=== PATIENT | male | born 1965 | race Caucasian/White ===

== ENCOUNTER → 2019-05-02 04:40 | Outpatient (CLI) | payer BC, SELFPAY ==
[2019-05-02 05:32] LABS: Basophils % 0.7 % (0.1-2.0); Eosinophils # 0.3 K/mm3 (0.0-0.4); Hematocrit 44.3 % (42.0-52.0); Hemoglobin 14.3 g/dL (14.1-18.0); Lymphocytes # 2.7 K/mm3 (0.7-4.5); Lymphocytes % 46.6 % (10-50); Mean Corpuscular HGB Conc 32.3 g/dL (31.8-35.4); Mean Corpuscular Hemoglobin 30.9 pg (27.0-31.2); Mean Corpuscular Volume 95.6 fl (80-94); Mean Platelet Volume 7.1 fl (7.4-10.4); Monocytes # 0.3 K/mm3 (0.1-1.0); Monocytes % 5.8 % (1.7-9.3); Neutrophils # 2.4 K/mm3 (1.8-7.8); Neutrophils % 41.8 % (37.0-80.0); Platelet Count 283 K/mm3 (142-424); Red Blood Count 4.64 M/mm3 (4.60-6.20); Red Cell Distribution Width 12.4 % (11.5-17.5); White Blood Count 5.8 K/mm3 (4.8-10.8)
[2019-05-02 05:45] LABS: Alanine Aminotransferase 38 U/L (12-78); Albumin Level 3.8 gm/dL (3.4-5.0); Albumin/Globulin Ratio 1.3 (1.1-1.8); Alkaline Phosphatase 62 U/L (46-116); Anion Gap 11.9 mEq/L (5-15); Aspartate Amino Transferase 15 U/L (15-37); Bilirubin,Total 0.4 mg/dL (0.2-1.0); Blood Urea Nitrogen 19 mg/dL (7-18); Calcium 9.1 mg/dL (8.5-10.1); Carbon Dioxide 27 mmol/L (21.0-32.0); Chloride 105 mmol/L (98-107); Chol/HDL Ratio 3.9 (1-3.5); Cholesterol 187 mg/dL (140-200); Creatinine,Serum 0.91 mg/dL (0.70-1.30); Estimated Glomerular Filt Rate 87 ml/min (>60); GFR (African American) 105 ML/MIN (>60); Globulin 2.9 gm/dl (1.3-3.2); Glucose 59 mg/dL (74-106); HDL Cholesterol 48 mg/dL (27-67); LDL Cholesterol 118 mg/dL (0-130); Potassium 3.9 mmoL/L (3.5-5.1); Sodium 140 mmol/L (136-145); Total Protein,Serum 6.7 gm/dL (6.4-8.2); Triglycerides 106 mg/dL (30-200); VLDL Cholesterol 21 mg/dL (0-40)
[2019-05-02 05:48] LABS: Hemoglobin A1C 6.8 % (0.0-7.0)
[2019-05-04 22:51] LABS: Microalbumin, Urine <3.0 ug/mL (Not Estab.)
== END ==
PROVIDERS: PCP Nurse Practitioner Family; Visit Provider Nurse Practitioner Family
DX: R71.0 Precipitous drop in hematocrit (principal); E78.2 Mixed hyperlipidemia; E11.65 Type 2 diabetes mellitus with hyperglycemia
CPT/HCPCS: 36415; 80053; 80061; 82043; 83036; 85025

== ENCOUNTER 2022-08-04 15:43 | Emergency (ER) | payer BC, SELFPAY ==
[2022-08-04 16:39] VITALS: BP 120/72; PULSE 91; RESP 19; TEMP 38.1; O2SAT 98; BMI 26.6
--- NOTE | 2022-08-04 16:43 | EXP.UTC ---
Discharge Plan Disposition Patient Disposition: Home, Self-Care Condition: Good Prescriptions Prescriptions: No Action simvastatin 10 MG tablet 10 mg PO HS Label Comments: TAKE 1 TABLET BY MOUTH ONCE DAILY IN THE EVENING pioglitazone 45 MG tablet 45 mg PO DAILY glimepiride 4 MG tablet 4 mg PO DAILY Label Comments: TAKE 1 TABLET BY MOUTH ONCE DAILY WITH BREAKFAST OR THE FIRST MAIN MEAL OF THE DAY omeprazole 20 MG capsule,delayed release(DR/EC) 20 mg PO DAILY Label Comments: TAKE 1 CAPSULE BY MOUTH ONCE DAILY aspirin 81 MG tablet,chewable 81 mg PO DAILY Label Comments: CHEW AND SWALLOW 1 TABLET BY MOUTH ONCE DAILY fenofibrate nanocrystallized 145 MG tablet 145 mg PO DAILY Label Comments: TAKE 1 TABLET BY MOUTH ONCE DAILY sitagliptin 100 MG tablet 100 mg PO DAILY Label Comments: TAKE 1 TABLET BY MOUTH ONCE DAILY acyclovir 800 MG tablet 800 mg PO 5XDAY Referrals Follow up/Referrals: Fozia Prado APRN [Primary Care Provider] - See instructions Activity Restrictions/Add. Instructions Additional Instructions/Restrictions: *Monitor Temp, Over the counter Motrin or Tylenol as directed/as needed Tylenol every 4 hours and Motrin every 6 hours (as long as your family doctor has told you that you can take it) for fever or pain. and straight to ER if unable to lower temp less than 101.0 after medication given *Warm salt water gargles may help to soothe the throat *Throat Lozenges? *Warm fluids like tea with honey may help to soothe the throat? *Sleep elevated *Humidifier/Vaporizer Follow up IMMEDIATELY for new or worsening symptoms or no Noticeable improvement over the next 48-72 hours. 911 for difficulty breathing or swallowing You were tested for today for Upper Respiratory Panel with COVID19 your test result should be back in the next 24-48 hours, Check your results on the [facility] My Health Portal Make sure to take your Vitamins Vit. C Vit D and Zinc if you can take them Clinical Impressions Clinical Impression: Viral syndrome Stand Alone Forms Stand Alone Forms: Work/School Release Instructions Patient Instructions: DI for Fever (Symptom) -- Adult, DI for Viral Syndrome Discharge ED Provider: Holly Roldan [facility] HPI General Stated complaint: Freezing,aches all over Mode of Arrival: Ambulatory Source of Information: Patient Limitations: No Limitations Time Seen by Provider: 08/04/22 16:44 Description of Symptoms (Recalled from Triage Doc. by RN): pt comes in with c/o body aches, sinus dryness, fever since this am. HEENT Symptoms (Recalled from RN notes): Yes Resp Symptoms (Recalled from RN notes): No Skin Symptoms (Recalled from RN notes): No MS Symptoms (Recalled from RN notes): No Functional Status (Recalled from RN notes): n/a History of Present Illness Provider Complaint: Patient states that he started this morning feeling tired, achy and then started with low grade fever State that he feels like he may have the flu States that his sinuses feel dry and denies nasal congestion State that he was worried that he may have the flu so he came in to get checked out Denies sore throat denies N/V Related Data Home Medications Medication Instructions Recorded Confirmed aspirin 81 mg chewable tablet 81 mg PO DAILY HEART 09/29/19 08/04/22 fenofibrate nanocrystallized 145 145 mg PO DAILY Cholesterol 09/29/19 08/04/22 mg tablet glimepiride 4 mg tablet 4 mg PO DAILY Diabetes 09/29/19 08/04/22 omeprazole 20 mg capsule,delayed 20 mg PO DAILY GERD 09/29/19 08/04/22 release pioglitazone 45 mg tablet 45 mg PO DAILY Diabetes 09/29/19 08/04/22 simvastatin 10 mg tablet 10 mg PO HS Cholesterol 09/29/19 08/04/22 sitagliptin 100 mg tablet 100 mg PO DAILY Diabetes 09/29/19 08/04/22 acyclovir 800 mg tablet 800 mg PO 5XDAY . 08/04/22 Allergies Allergy/AdvReac Type Severity Reaction Status Date / Time No K
[2022-08-04 16:44] LABS: UTC Influenza A Antigen Negative (Negative); UTC Influenza B Antigen Negative (Negative)
[2022-08-04 16:46] LABS: Adenovirus,PCR Not Detected (NotDetected); Bordetella Pertussis Not Detected (NotDetected); Chlamydophila Pneumoniae, PCR Not Detected (NotDetected); Coronavirus 229E Not Detected (NotDetected); Coronavirus NL63 Not Detected (NotDetected); Coronavirus OC43 Not Detected (NotDetected); Coronovirus HKU1,PCR Not Detected (NotDetected); Human Metapneumovirus Not Detected (NotDetected); Influenza A, PCR Not Detected (NotDetected); Influenza AH1, 2009 Not Detected (NotDetected); Influenza AH1, PCR Not Detected (NotDetected); Influenza AH3,PCR Not Detected (NotDetected); Influenza B, PCR Not Detected (NotDetected); Mycoplasma Pneumoniae, PCR Not Detected (NotDetected); Parainfluenza 1, PCR Not Detected (NotDetected); Parainfluenza 2, PCR Not Detected (NotDetected); Parainfluenza 3, PCR Not Detected (NotDetected); Parainfluenza 4, PCR Not Detected (NotDetected); Respiratory Syncytial Virus Not Detected (NotDetected); Rhinovirus/Enterovirus Not Detected (NotDetected)
[2022-08-04 17:05] VITALS: BP 120/72; PULSE 91; RESP 19; TEMP 37.7
[2022-08-04 20:09] LABS: Coronavirus 19, PCR Detected (NotDetected)
== END 2022-08-04 17:08 | disposition home or self-care (01) ==
PROVIDERS: Emergency Provider Nurse Practitioner; PCP Nurse Practitioner Family
DX: U07.1 COVID-19 (principal)
CPT/HCPCS: 87581; 87632; 87798; 87804; 99212; C9803; G0463; U0003; U0005

== ENCOUNTER 2025-09-30 05:39 | Emergency (ER) | payer OTHER, SELFPAY ==
--- OUTSIDE RECORDS SUMMARY | 2025-09-30 05:47 | XMS_ITS | Encounter Summary ---
Author Organization [facility] Address [address] [place] [address] Phone CareEverywhereSuppor Care Team Providers Care Aerospace Physiological Technician Name Role Phone Provider, No Primary Care Provider Unavailabl e Encounter Details Date Type Department Care Team (Late st Contact Info) Description 09/28/2025 Orders Only [facility] [place] [facility] [address] [place] [address] Jeannine Silva, ARRT [address] [place] [address] Acute right-sided low back pain with right-sided sciatica; Right hip pain Social History Tobacco Use Types Packs/Day Years Used Date Smoking Tobacco: Never Smokeless Tobacco: Never Alcohol Use Standard Drinks/Week Comments No 0 (1 standard drink = 0.6 oz pur e alcohol) Intimate Partner Violence Answer Date R ecorded Insults You Not on file 02/02/2021 Threatens You Not on file 02/02/2021 Screams at You Not on file 02/02/2021 Physically Hurt Not on file 02/02/2021 Intimate Partner Violence Score Not on file 02/02/2021 Alcohol Use Answer Date Recorded Alcohol Use Status No 07/19/2021 Depression Answer Date Recorded PHQ Total Score 0 05/01/2024 Stress Answer Date Recorded Stress in your Life Not on file 08/25/2024 Dealing with Stress 3 08/25/2024 Sex and Gender Information Value Date Recorded Sex Assigned at Not on file Legal Sex Male 10:31 AM CDT Gender Identity Not on file Sexual Orientation Not on file documented as of this encounter Plan of Treatment Upcoming Encounters Date Type Department Care Team (Late st Contact Info) Description 09/30/2025 11:30 AM EST [facility] [address] [place] [address] Hector Ohara, PT [address] [place] [address] 10/12/2025 9:00 AM EST Occ [facility] [place] [facility] [address] [place] [address] Leila Riddle, PA [address] [place] [address] documented as of this encounter Procedures Procedure Name Priority Date/Time Associated Diagnosis Comments XR SPINE, LUMBOSACRAL, MINIMUM OF 4 VIEWS CPT 57644 Routine 09/28/2025 12:37 PM EST Acute right-sided low back pain with right-sided sciatica XR HIP, UNILATERAL WITH PELVIS WHEN PERFORMED, 2-3 VIEWS - RIGHT CPT 69502 Routine 09/28/2025 12:36 PM EST Right hip pain documented in this encounter Results * XR Spine, lumbosacral, minimum of 4 views CPT 88480 (09/28/2025 12:37 PM EST) Anatomical Region Laterality Modality Spine, L-spine Radiographic Natasha ging Impressions 09/28/2025 12:37 PM EST IMPRESSION: 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 /Central Ordered By: BOB Staples 09/28/2025 12:37 PM EST Examination AP and Lateral views were obtained of the Lumbar spine Comparisons None provided. 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 Remaining vertebral body alignment is within normal limits. No acute fracture is evident. Mild to moderate degenerative disease is evident. Procedure Note EXPERITY TELERADIOLOGY PROVIDER - 09/28/2025 Examination AP and Lateral views were obtained of the Lumbar spine Comparisons None provided. 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 No acute fracture is evident. Mild to moderate degenerative disease is evident. 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 US/Central Ordered By: BOB CARLISLE Bob Carlisle MD IMG XR PROCEDURES Final R esult * XR Hip, unilateral with pelvis when performed, 2-3 views - right CPT [id number] (09/28/2025 12:36 PM EST) Anatomical Region Laterality Modality Lower Extremities, Hip Right Radiograp hic Imaging Impressions 09/28/2025 12:36 PM EST IMPRESSION: No Fracture or other acute finding identified. /Central Ordered By: BOB CARLISLE Narrative 09/28/2025 12:36 PM EST Examination 2 views of the right hip Comparison None provided. Findings There is no significant soft tissue swelling appreciated. There is no evidence for acute fracture. Mild OA is noted. Procedure Note EXPERITY TELERADIOLOGY PROVIDER - 09/28/2025 Examination 2 views of the right hip Comparison None provided. Findings There is no significant soft tissue swelling appreciated. There is no evidence for acute fracture. Mild OA is noted. IMPRESSION: IMPRESSION: No Fracture or other acute finding identified. US/Central Ordered By: BOB CARLISLE us Bob Carlisle MD IMG XR PROCEDURES Final R esult documented in this encounter Visit Diagnoses Diagnosis Acute right-sided low back pain with right-sided sciatica Right hip pain Pain in joint, pelvic region and thigh documented in this encounter Care Teams Aerospace Physiological Technician Relationship Specialty Start Date End Date Provider, LILIAN Singh [id number] PCP - General Chest Painting Leader 08/19/21 documented as of this encounter
--- OUTSIDE RECORDS SUMMARY | 2025-09-30 05:47 | XMS_ITS | Clinical Summary ---
Author Organization [facility] Address [address] [place] [address] Care Team Providers Care Monument Mason Name Role Phone Pcp, No Primary Care Provider Unavailabl e Allergies No known active allergies Medications metFORMIN (Glucophage) 1000 MG tablet 06/18/2021 Active glimepiride (Amaryl) 4 MG tablet 06/18/2021 Active simvastatin (Zocor) 10 MG tablet 06/18/2021 Active Januvia 100 MG tablet 06/06/2021 Active pioglitazone (Actos) 45 MG tablet 06/18/2021 Active SM Aspirin Adult Low Strength 81 MG EC tablet 01/07/2021 Active omeprazole (PriLOSEC) [address] capsule 06/18/2021 Active fenofibrate (Tricor) 145 MG tablet 06/18/2021 Active Active Problems Problem Noted Date Diagnosed Date Rupture of right proximal biceps tendon 09/29/20 21 Pain in joint, hand 03/31/2010 Overview (08/25/2021): Foreign body in cornea 03/11/2010 Overview (08/25/2021): Sprain and strain of carpometacarpal (joint) of hand 11/24/2009 Overview (08/25/2021): Closed fracture of four ribs 03/17/2008 Overview (08/25/2021): Health examination of defined subpopulation 12/20 Overview (08/25/2021): Other examination of ears and hearing 12/30/2007 Overview (08/25/2021): Social History Tobacco Use Types Packs/Day Years Used Date Smoking Tobacco: Never Smokeless Tobacco: Never PHQ-2 Answer Date Recorded Patient Health Questionnaire-2 Score 0 09/01/2021 Sex and Gender Information Value Date Recorded Sex Assigned at Not on file Legal Sex Male 8:55 PM EDT Gender Identity Not on file Sexual Orientation Not on file Last Filed Vital Signs Vital Sign Reading Time Taken Comments Blood Pressure 129/78 12/08/2021 9:39 AM EST Pulse 71 12/08/2021 9:39 AM EST Temperature - - Respiratory Rate 18 12/08/2021 9:39 AM EST Oxygen Saturation 98% 12/08/2021 9:39 AM EST Inhaled Oxygen Concentration - - Weight 82.1 kg (181 lb) 12/08/2021 9:39 AM EST Height 167.6 cm (5' 6 ) 12/08/2021 9:39 AM EST Body Mass Index 29.21 12/08/2021 9:39 AM EST Plan of Treatment Health Maintenance Due Date Last Done Comments [facility]-Depression Screening 1965 [facility]-/Child/Adol SDOH Screenings 1965 [facility]- SDOH Screenings 12/22/1983 [facility]-Adult SDOH Screenings 12/22/1983 [facility]-Hepatitis B Vaccines (3 of 3 - 19+ 3-dose series) 07/26/2010 03/14/2010, 01/24/2010 CT Colonography 2010 Colonoscopy 2010 FIT-DNA 2010 FIT 2010 FOBT 2010 Sigmoidoscopy 2010 [facility]-Colorectal Cancer Screening 2010 [facility]-Pneumococcal Vaccine: 50+ Years (1 of 1 - PCV) 12/22/2015 [facility]-DTaP,Tdap,and Td Vaccines (2 - Td or Tdap) 03/14/2020 03/14/2010, 03/07/2002 [id number] Vaccine ( season) 2025 10/19/2021, 01/13/2021, 12/16/2020 [facility]-Influenza Vaccine (#1) 06/22/202507/26, 07/22/2020, 09/25/2019, Additional history exists [facility]-Hepatitis A Vaccines Aged Out 03/14/2010 No longer eligible based on patient's age to complete this topic [facility]-Zoster Vaccines Completed 07/08/2021, 0 HPV Vaccines Aged Out No longer eligi ble based on patient's age to complete this topic [facility]-HIB Vaccines Aged Out No longer e ligible based on patient's age to complete this topic [facility]-IPV Vaccines Aged Out No longer e ligible based on patient's age to complete this topic [facility]-Rotavirus Vaccines Aged Out No lo nger eligible based on patient's age to complete this topic Insurance [employer] [facility] Care Teams Monument Mason Relationship Specialty Start Date End Date Pcp, [place] [address] PCP - General 08/25/21
--- OUTSIDE RECORDS SUMMARY | 2025-09-30 05:47 | XMS_ITS | Clinical Summary ---
Author Organization [facility] Address [address] [place] [id number] Phone [email or web address] Care Team Providers Care Linoleum Installer Name Role Phone Provider, No Primary Care Provider Unavailabl e Allergies No known active allergies Medications JANUVIA 100 MG tablet 09/27/20 18 Active metFORMIN (GLUCOPHAGE) 1000 MG tablet 08/19/20 18 Active simvastatin (ZOCOR) 10 MG tablet 08/19/20 18 Active glimepiride (AMARYL) 4 MG tablet 08/19/20 18 Active SM ASPIRIN ADULT LOW STRENGTH 81 MG EC tablet 08/19/20 18 Active Trulicity 0.75 MG/0.5ML solution pen-injector Not taking yet 07/18/20 21 Active fenofibrate (TRICOR) 145 MG tablet Take 145 mg by mouth 1 (one) time each day. 06/18/20 21 Active lisinopril (ZESTRIL) 5 MG tablet Take 5 mg by mouth 1 (one) time each day. 06/18/20 21 Active pioglitazone (ACTOS) 45 MG tablet Take 45 mg by mouth 1 (one) time each day. 06/18/20 21 Active simvastatin (ZOCOR) 40 MG tablet TAKE 1 TABLET BY MOUTH ONCE DAILY (DOSE CHANGE) 12/09/19 22 Active omeprazole (PriLOSEC) [address] capsule 12/12/19 22 Active Mounjaro 10 mg/0.5mL SC Auto-injector INJECT CONTENTS OF 1 SYRINGE SUBCUTANEOUSLY ONCE A WEEK Active Empagliflozin 25 MG tablet Take 25 mg by mouth once daily as needed. 04/20/20 25 Active meloxicam (Mobic) 7.5 MG tabletIndication s:Greater trochanteric pain syndrome of right lower extremity,Acute right-sided low back pain with right-sided sciatica Take 1 tablet (7.5 mg total) by mouth 1 (one) time each day. 30 tablet 09/28/20 25 026 Active Hospital, Clinic, or Other Facility Administered Medication Ordered Dose Route Frequency Start Date End Date Status ketorolac (TORADOL) injection 60 mgIndications:Acute right-sided low back pain with right-sided sciatica 60 mg IM Once 09/29/2025 09/29/2025 Discontinued ketorolac (TORADOL) injection 60 mgIndications:Acute right-sided low back pain with right-sided sciatica,Greater trochanteric pain syndrome of right lower extremity 60 mg IM Once 09/29/2025 09/29/2025 Ended Active Problems Problem Noted Date Diagnosed Date Pain in joint, hand 03/31/2010 Overview (03/20/2018): Foreign body in cornea 03/11/2010 Overview (03/20/2018): Sprain and strain of carpometacarpal (joint) of hand 11/24/2009 Overview (03/20/2018): Closed fracture of four ribs 03/17/2008 Overview (03/20/2018): Other examination of ears and hearing 12/30/2007 Overview (03/20/2018): Health examination of defined subpopulation 12/20 Overview (03/20/2018): Encounters Date Type Department Care Team Description 09/28/2025 Orders Only [facility] [place] [facility] [address] [place] [address] Jeannine Silva ARRT Acute right-sided low back pain with right-sided sciatica; Right hip pain from Last 3 Months Immunizations Immunization Administration Dates Next Due Covid-19 (Moderna Letcher, 12yrs+) (CVX-207) 2020,12/16/2020 Tdap (ADACEL BOOSTRIX) (CVX-115) 03/14/2010 Social History Tobacco Use Types Packs/Day Years Used Date Smoking Tobacco: Never Smokeless Tobacco: Never Tobacco Cessation:Counseling Given: Not Answered Alcohol Use Standard Drinks/Week Comments No 0 [...] Sign Reading Time Taken Comments Blood Pressure 125/69 09/29/2025 9:13 AM EST Pulse 69 09/29/2025 9:13 AM EST Temperature 36.4 C (97.5 F) 05/26/2024 11:58 AM EDT Respiratory Rate 16 09/29/2025 9:13 AM EST Oxygen Saturation 99% 09/29/2025 9:13 AM EST Inhaled Oxygen Concentration - - Weight 71.5 kg (157 lb 11.2 oz) 025 11:32 AM EST Height 167.6 cm (5' 6 ) 09/28/2025 11:3 2 AM EST Body Mass Index 25.45 09/28/2025 11:32 AM EST Plan of Treatment Upcoming Encounters Date Type Department Care Team (Late st Contact Info) Description 09/30/2025 11:30 AM EST Occ Treatment [facility] [address] [place] [address] Hector Ohara, PT [address] [address] 10/12/2025 9:00 AM EST Occ Office Visit [facility] [place] [facility] [address] [place] [address] Leila Riddle PA [address] [place] [address] Health Maintenance Due Date Last Done Comments CT Colonography 1965 Colonoscopy 1965 Colorectal Cancer Screening Combo 1965 DNA Cologuard 1965 Dental Cleaning/Exam 1965 FIT or FOBT Test 1965 HIV Screening 1965 Hepatitis C Screening 1965 Sigmoidoscopy 1965 Annual Preventive Exam 12/22/1983 Hep B Infection Screening - Triple Screen 12/22/1983 Hepatitis B Immunization (3 of 3 - 19+ 3-dose series) 07/26/2010 03/14/2010, 01/24/2010 Pneumococcal: 50+ Years (1 of 1 - PCV) 12/22/2015 Tetanus Diphtheria and Pertussis Immunization (2 - Td or Tdap) 03/14/2020 03/14/2010, 03/07/2002 Covid-19 Immunization (4 - season) 2025 10/19/2021, 01/13/2021, 12/16/2020 Influenza Immunization (#1) 2025 11/0 11/2021, 07/26/2021, 07/22/2020, Additional history exists Hepatitis A Immunization Aged Out 03/14/2010 No longer eligible based on patient's age to complete this topic Zoster Immunization Completed 07/08/2021, Diabetic Kidney Health Eval (eGFR & Alb/CR ratio urine) Discontinued 10/08/2024, 12/19/2022 HIB Immunization Aged Out No longer e ligible based on patient's age to complete this topic HPV Immunization Aged Out No longer e ligible based on patient's age to complete this topic Polio Immunization Aged Out No longer eligible based on patient's age to complete this topic Procedures Procedure Name Priority Date/Time Associated Diagnosis Comments XR SPINE, LUMBOSACRAL, MINIMUM OF 4 VIEWS CPT 58990 Routine 09/28/2025 12:37 PM EST Acute right-sided low back pain with right-sided sciatica XR HIP, UNILATERAL WITH PELVIS WHEN PERFORMED, 2-3 VIEWS - RIGHT CPT 98028 Routine 09/28/2025 12:36 PM EST Right hip pain from Last 3 Months Results * XR Spine, lumbosacral, minimum of 4 views CPT 37501 (09/28/2025 12:37 PM EST) Anatomical Region Laterality Modality Spine, L-spine Radiographic Natasha ging Impressions 09/28/2025 12:37 PM EST IMPRESSION: 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 /Central Ordered By: BOB CARLISLE Narrative 09/28/2025 12:37 PM EST Examination AP and [...] I/II anterolithesis. US/Central Ordered By: BOB CARLISLE us Bob Carlisle MD IMG XR PROCEDURES Final R esult * XR Hip, unilateral with pelvis when performed, 2-3 views - right CPT 69895 (09/28/2025 12:36 PM EST) Anatomical Region Laterality [...] MD IMG XR PROCEDURES Final R esult from Last 3 Months [id number] [place] [address] Care Teams Linoleum Installer Relationship Specialty Start Date End Date Provider, Iris WALTONWLILIAN Chaparro [id number] PCP - General Studio Operations Manager 08/19/21
--- OUTSIDE RECORDS SUMMARY | 2025-09-30 05:47 | XMS_ITS | Clinical Summary ---
[facility] Address [address] [place] [address] Care Team Providers Care Thread Weaver Name Role Phone Provider, No Known Primary Care Provider Unavail able Allergies No known active allergies Medications aspirin 81 MG EC tablet Take 1 tablet by mouth Daily. Active glucose monitor monitoring kit 1 each Daily. 1 each 2 Active glucose blood test strip Use one daily; ICD-10 E11.65 100 each 3 2 Active Lancets misc 1 each Daily. 100 each 3 2 Active fenofibrate (TRICOR) 145 MG tablet Take 1 tablet by mouth Daily. 90 tablet 3 4 Active lisinopril (PRINIVIL,ZESTR IL) 5 MG tablet Take 1 tablet by mouth Daily. 90 tablet 3 4 Active metFORMIN (GLUCOPHAGE) 1000 MG tablet Take 1 tablet by mouth 2 (Two) Times a Day With Meals. 180 tablet 3 4 Active simvastatin (ZOCOR) 40 MG tablet Take 1 tablet by mouth Daily. 90 tablet 3 4 Active omeprazole (priLOSEC) 20 MG capsule Take 1 capsule by mouth Daily. 90 capsule 3 4 Active Tirzepatide (Mounjaro) 10 MG/0.5ML solution auto-injector Inject 0.5 mL under the skin into the appropriate area as directed 1 (One) Time Per Week. 6 mL 1 5 Active empagliflozin (Jardiance) 25 MG tablet tablet Take 1 tablet by mouth Daily. 90 tablet 3 5 Active Active Problems Problem Noted Date Diagnosed Date Type 2 diabetes mellitus with hyperglycemia 02/20 Assessment & Plan (04/08/2025 4:09 PM EDT): Diabetes is worsening. We discussed treatment options. Try adding SGLT-2 inhibitor. Stop glimepiride. Diabetes will be reassessed in 6 months. Assessment & Plan (10/08/2024 11:25 AM EST): Diabetes is improving with treatment. Increase trulicity. Watch for hypoglycemia - may need to decrease glimepiride. Diabetes will be reassessed in 6 months. Assessment & Plan (07/03/2023 3:52 PM EDT): Diabetes is worsening. A1c higher after decreasing glimepiride due to hypoglycemia. Increase trulicity. Watch for more hypoglycemia. If this happens, stop glimepiride. Diabetes will be reassessed in 3 months. Assessment & Plan (12/19/2022 4:03 PM EST): Diabetes is improving with treatment. Continue current treatment regimen. But watch for hypoglycemia. Diabetes will be reassessed in 3 months. He was fasting in the late afternoon in hopes of getting labs done. Glucose was 41 upon arrival to the office. After treatment with juice, glucose was 56. He was given more juice after this. His hypglycemia symptoms had improved. If he has more hypoglycemia, cut glimepiride in 1/2. Assessment & Plan (03/13/2022 9:12 AM EDT): Diabetes is improving with treatment. A1c above goal at 7.6%. We discussed treatment options today. Trial of GLP-1 RA. Stop januvia and pioglitazone. Watch for hypoglycemia - may need to decrease glimepiride. Diabetes will be reassessed in 3 months. Refer for DM education. 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 Assessment & Plan (10/08/2024 11:24 AM EST): Continue ophthalmology follow up. Assessment & Plan (07/03/2023 3:41 PM EDT): Continue ophthalmology follow up. Assessment & Plan (12/19/2022 3:56 PM EST): Continue ophthalmology follow up. Assessment & Plan (03/13/2022 9:10 AM EDT): Continue ophthalmology follow up. Benign hypertension 03/13/2022 Assessment & Plan (04/08/2025 4:09 PM EDT): Hypertension is stable and controlled. Continue current treatment regimen. Blood pressure will be reassessed in 6 months. Assessment & Plan (10/08/2024 11:25 AM EST): Hypertension is stable and controlled Continue current treatment regimen. Blood pressure will be reassessed in 6 months. Assessment & Plan (07/03/2023 3:40 PM EDT): Hypertension is improving with treatment. Continue current treatment regimen. Blood pressure will be reassessed at the next regular appointment. Assessment & Plan (12/19/2022 3:55 PM EST): Hypertension is unchanged. Continue current treatment regimen. Blood pressure will be reassessed at the next regular appointment. Assessment & Plan (03/13/2022 9:11 AM EDT): BP okay. Continue KARINE-I. Mixed hyperlipidemia 03/13/2022 Assessment & Plan (04/08/2025 4:10 PM EDT): Continue statin and fenofibrate. Plan to check lipids next visit. Assessment & Plan (10/08/2024 11:25 AM EST): Continue statin. Check lipids. Assessment & Plan (07/03/2023 3:40 PM EDT): Continue statin. Assessment & Plan (12/19/2022 3:56 PM EST): Continue statin and fenofibrate. Assessment & Plan (03/13/2022 9:20 AM EDT): Continue statin. Family History Medical History Relation Name Comments No Known Problems Mother Relation Name Status Comments Father Mother Alive Social History Tobacco Use Types Packs/Day Years Used Date Smoking Tobacco: Never Smokeless Tobacco: Never Alcohol Use Standard Drinks/Week Comments Never 0 (1 standard drink = 0.6 oz pur e alcohol) Sex and Gender Information Value Date Recorded Sex Assigned at Not on file Legal Sex Male 11:13 AM EDT Gender Identity Not on file Sexual Orientation Not on file Last Filed Vital Signs Vital Sign Reading Time Taken Comments Blood Pressure 110/68 04/08/2025 3:32 PM EDT Pulse 78 04/08/2025 3:32 PM EDT Temperature - - Respiratory Rate - - Oxygen Saturation 99% 04/08/2025 3:32 PM EDT Inhaled Oxygen Concentration - - Weight 81.6 kg (180 lb) 04/08/2025 3:32 PM EDT Height 165.1 cm (5' 5 ) 04/08/2025 3:32 PM EDT Body Mass Index 29.95 04/08/2025 3:32 PM EDT Plan of Treatment Health Maintenance Due Date Last Done Comments DIABETIC FOOT EXAM 12/22/1975 Pneumococcal Vaccine 50+ (1 of 2 - PCV) 1984 Hepatitis B (3 of 3 - 19+ 3- dose series) 07/26/2010 03/14/2010, 01/24/2010 COLOGUARD 2010 COLON CANCER SCREENING 5 YEA R SIGMOIDOSCOPY 2010 COLONOSCOPY 2010 COLORECTAL CANCER SCREENING 2010 CT COLONOGRAPHY 2010 FECAL OCCULT BLOOD TEST 2010 FIT Testing (1 year) 2010 TDAP/TD VACCINES (2 - Td or Tdap) 03/14/2020 010, 03/07/2002 ANNUAL PHYSICAL 03/13/2022 HEPATITIS C SCREENING 03/13/2022 INFLUENZA VACCINE 05/22/2025 08/07/2024, , 07/26/2021, Additional history exists HEMOGLOBIN A1C 10/08/2025 04/08/2025, 09/21, 07/03/2023, Additional history exists LIPID PANEL 10/08/2025 10/08/2024, 12/19/2022 DIABETIC EYE EXAM 12/02/2025 12/02/2024, , 10/26/2022, Additional history exists URINE MICROALBUMIN-CREATININ E RATIO (uACR) 04/09/2026 04/09/2025 ZOSTER VACCINE Completed 07/08/2021, 08/14/2020 Procedures Procedure Name Priority Date/Time Associated Diagnosis Comments POCT GLYCOSYLATED HEMOGLOBIN (HGB A1C) Routine 04/08/2025 3:45 PM EDT Type 2 diabetes mellitus with hyperglycemia, unspecified whether group home insulin use LIPID PANEL Routine 10/08/2024 11:30 AM EST Type 2 diabetes mellitus with hyperglycemia, unspecified whether group home insulin use from Last 3 Months or Most Recently Relevant to Health Maintenance Results * (ABNORMAL) POC Glycosylated Hemoglobin (Hb A1C) (04/08/2025 3:45 PM EDT) Pathologist [facility] Hemoglobin A1C 8.1(A) 4.5 - 5.7 % [facility] Lot Number [id number] [facility] Expiration Date 12/17/26 [facility] Blood 04/08/2025 3:45 PM EDT Cedric Dowling MD POINT OF CARE TEST ORDERA BLES Final Result [facility]
[address] [place] [address], * Lipid Panel (10/08/2024 11:30 AM EST) Total Cholesterol 139 0 - 200 mg/dL 10/09/2024 12:06 AM EST [facility] Triglycerides 69 0 - 150 mg/dL 10/09/2024 12:06 AM EST [facility] HDL Cholesterol 41 40 - 60 mg/dL 10/09/2024 12:06 AM EST [facility] LDL Cholesterol 84 0 - 100 mg/dL 10/09/2024 12:06 AM EST [facility] VLDL Cholesterol 14 5 - 40 mg/dL 10/09/2024 12:06 AM EST [facility] LDL/HDL Ratio 2.05 10/09/2024 12:06 AM EST [facility] Blood Structure of left upper limb / Unknown Venipuncture / Unknown 10/08/2024 11:30 AM EST 10/08/2024 11:31 AM EST Narrative [facility] - 10/09/2024 12:06 AM EST Cholesterol Reference Ranges (U.S. Department of Health and Human Services ATP III Classifications) Desirable <200 mg/dL Borderline High 200-239 mg/dL High Risk >240 mg/dL Triglyceride Reference Ranges (U.S. Department of Health and Human Services ATP III Classifications) Normal <150 mg/dL Borderline High 150-199 mg/dL High 200-499 mg/dL Very High >500 mg/dL HDL Reference Ranges (U.S. Department of Health and Human Services ATP III Classifications) Low <40 mg/dl (major risk factor for CHD) High >60 mg/dl ('negative' risk factor for CHD) LDL Reference Ranges (U.S. Department of Health and Human Services ATP III Classifications) Optimal <100 mg/dL Near Optimal 100-129 mg/dL Borderline High 130-159 mg/dL High 160-189 mg/dL Very High >189 mg/dL Cedric Dowling MD LAB BLOOD ORDERABLES Deb rodney Result [facility]
[address] [place] [address], from Last 3 Months or Most Recently Relevant to Health Maintenance Insurance [facility] PPO Member Subscriber Plan / Payer (Ef fective 2020-Present) Name:Dio Gunn Relation to Subscriber:Self Name:Dio Gunn Payer ID:[id number] (NAIC) Type:Not on file Address: [facility] [id number] [place] [id number] Care Teams Thread Weaver Relationship Specialty Start Date End Date Provider, [place] [address] PCP - General 03/13/22
[2025-09-30 05:48] VITALS: BP 143/94; PULSE 79; RESP 79; TEMP 36.7; O2SAT 98; BMI 25.3
[2025-09-30 05:54] VITALS: BP 143/94; PULSE 79; RESP 16; TEMP 36.7; O2SAT 98
[2025-09-30] MEDS: ACETAMINOPHEN 500MG TAB 1000 MG PO (06:13)
--- NOTE | 2025-09-30 06:13 | HMH.EDGENADL ---
Discharge Plan Disposition Patient Disposition: Home, Self-Care Condition: Good Prescriptions Prescriptions: New prednisone 10 mg tablet 10 mg PO DIRECTED Qty: 30 0RF Rx Instructions: Take 40 mg (4 pills) for 3 days, then 30mg (3 pills) for 3 days, then 20mg (2 pills) for 3 days, then 10mg (1 pill) for 3 days. methocarbamol 500 mg tablet 500 mg PO Q6H PRN (Reason: muscle spasm) Qty: 30 0RF lidocaine 5 % adhesive patch,medicated See Rx Instructions .ROUTE .COMPLEX Qty: 15 0RF Rx Instructions: Apply to most painful area and leave on for 12 hours. Remove and leave off for 12 hours before using a new patch. No Action simvastatin 10 MG tablet 10 mg PO HS Patient Comments: TAKE 1 TABLET BY MOUTH ONCE DAILY IN THE EVENING pioglitazone 45 MG tablet 45 mg PO DAILY glimepiride 4 MG tablet 4 mg PO DAILY Patient Comments: TAKE 1 TABLET BY MOUTH ONCE DAILY WITH BREAKFAST OR THE FIRST MAIN MEAL OF THE DAY omeprazole 20 MG capsule,delayed release(DR/EC) 20 mg PO DAILY Patient Comments: TAKE 1 CAPSULE BY MOUTH ONCE DAILY aspirin 81 MG tablet,chewable 81 mg PO DAILY Patient Comments: CHEW AND SWALLOW 1 TABLET BY MOUTH ONCE DAILY fenofibrate nanocrystallized 145 MG tablet 145 mg PO DAILY Patient Comments: TAKE 1 TABLET BY MOUTH ONCE DAILY sitagliptin phosphate 100 MG tablet 100 mg PO DAILY Patient Comments: TAKE 1 TABLET BY MOUTH ONCE DAILY acyclovir 800 MG tablet 800 mg PO 5XDAY Referrals Follow up/Referrals: Fozia Prado APRN [Primary Care Provider, Medical] - See instructions Activity Restrictions/Add. Instructions Additional Instructions/Restrictions: You were evaluated in the ER and are believed to be appropriate for discharge at this time. Take your prescribed medications as directed. Take Tylenol at home if needed for pain, do not exceed the recommended dose on the bottle. Take ibuprofen OR meloxicam, not both. Drink water and eat a small snack each time you take these medications to avoid side effects. Take the muscle relaxer (methocarbamol) if needed as directed. Do not drive or operate machinery after taking this medication until you know how it affects you as it may make you sleepy. Use the prescribed lidocaine patches as directed, 12 hours on, 12 hours off. As discussed, if you decide to start the steroid monitor your sugar closely and take it as directed. Follow-up with your specialist as scheduled. Continue with physical therapy as scheduled. Also follow-up with your primary care doctor for reevaluation. Return to the ER with any new, worsening, or otherwise concerning symptoms as discussed. Clinical Impressions Clinical Impression: Leg pain, right Print Language Print Language: Lao Discharge ED Provider: Keith Keller Adult HPI General Chief complaint: PAIN Stated complaint: R hip, thigh pain Time Seen by Provider: 09/30/25 05:51 Mode of Arrival: Ambulatory Source of Information: Patient and Spouse Description of Symptoms (Recalled from ER Triage Doc. by RN): PT presents to the ED for evaluation of R hip pain. PT stated on sunday09/25/2025 he was at work and his hip/lower back/down thigh he just started experiencing bad pain. He went to PCP and has xrays and hasnt gotten the results, PCP has referred him to a specialist. History of Present Illness HPI narrative: 59-year-old male presents to the ER complaining of right hip pain. 5 days ago he started experiencing pain radiating from the right low back into the right hip and down the back of the right leg. He states he saw the doctor at [facility] who took x-rays and instructed him to follow-up with a specialist with orthopedics. That has not yet happened. Patient states he is supposed to start physical therapy today and has been taking the meloxicam that was prescribed after receiving a Toradol shot but states it does not seem to be controlling his pain. He last took Tylenol 9 hours ago. He has no numbness, tingling, or weakness. He states he has noticed pain with walking. He has no bowel or bladder incontinence, no difficulty urinating or passing stool, denies saddle anesthesia. This has been a problem for the patient in the past that required physical therapy. He states uncontrolled with the medications he had at home tonight so he came to the ER for further evaluation. He denies fevers, chills, chest pain, difficulty breathing, dysuria, hematuria, or other associated symptoms. He reports he is a type II diabetic not on insulin. Related Data Home Medications ?Medication ?Instructions ?Recorded ?Confirmed aspirin 81 mg chewable tablet 81 mg PO DAILY HEART 09/29/19 08/04/22 fenofibrate nanocrystallized 145 145 mg PO DAILY Cholesterol 09/29/19 08/04/22 mg tablet glimepiride 4 mg tablet 4 mg PO DAILY Diabetes 09/29/19 08/04/22 omeprazole 20 mg capsule,delayed 20 mg PO DAILY GERD 09/29/19 08/04/22 release pioglitazone 45 mg tablet 45 mg PO DAILY Diabetes 09/29/19 08/04/22 simvastatin 10 mg tablet 10 mg PO HS Cholesterol 09/29/19 08/04/22 sitagliptin phosphate 100 mg tablet 100 mg PO DAILY Diabetes 09/29/19 08/04/22 acyclovir 800 mg tablet 800 mg PO 5XDAY . 08/04/22 Previous Rx's ?Medication ?Instructions ?Recorded lidocaine 5 % topical patch See Rx Instructions topical 09/30/25 .COMPLEX #15 ea methocarbamol 500 mg tablet 500 mg PO Q6H PRN muscle spasm #30 09/30/25 tabs prednisone 10 mg tablet 10 mg PO DIRECTED #30 tabs 09/30/25 Allergies Allergy/AdvReac Type Severity Reaction Status Date / Time No Known Allergies Allergy Verified 09/30/25 05:55 [facility] Disclaimer: The information contained in this section may have been updated after the patient was seen, as this information can be updated by other users. Social History Smoking Status: Never smoker alcohol intake: never current occupational status: other Travel in the last 8 weeks?: None Have you lived/traveled outside US in past 30 days?: No Contact w/someone who lives/traveled outside US past 30 days?: No Exposure to someone with infectious disease in past 14 days?: No Do you have a fever (greater than 100.4 F or 38 C)?: No Have you tested positive for COVID-19?: No Exposed to someone with COVID-19 in past 14 days?: No Do you have a sore throat?: No Do you have a cough?: No Do you have any weakness?: No Do you have any diarrhea?: No Are you experiencing any unusual bleeding?: No Do you have any muscle aches/pain?: No Do you have any abdominal pain?: No Are you experiencing loss of taste or smell?: No ROS Obtained: Yes Systems reviewed as appropriate & no additional complaints except as documented Per HPI Physical Exam General General appearance: alert and in no apparent distress Head Head exam: atraumatic and normocephalic Eye Eye exam: Present PERRL and EOMI ENT ENT exam: Present mucous membranes moist Neck Neck exam: Present normal inspection and full ROM Chest Chest inspection: Present symmetric chest wall rise Respiratory Respiratory exam: Absent respiratory distress or stridor Cardiovascular Cardiovascular exam: Present regular rate and normal rhythm Extremities Exam Extremities exam: Present full ROM; Absent edema Back Exam Back exam: Present sciatic notch tenderness (R); Absent CVA tenderness (R), CVA tenderness (L), paraspinal tenderness or vertebral tenderness Back 1 view image:  1. Sciatic notch tenderness 2. Tenderness posterior to the right hip with no evidence of traumatic injury, tenderness specifically over the piriformis muscle 3. Distribution of the patient's pain Neurological Exam Neurological exam: Present alert, oriented X3 and other (No saddle anesthesia, full strength); Absent motor sensory deficit Psychiatric Psychiatric exam: Present normal affect and normal mood Skin Skin exam: Present warm and dry Medical Decision Making Medical Records Medical records reviewed: Yes I reviewed the patient's medical records. Screening: Per USPSTF and CDC recommendations, given the prevalence of disease in our region, it is our hospital?s policy to screen for HIV and viral Hepatitis for all patients aged 18 and over and those with ongoing risk factors. Alex Inquiry Pt receiving controlled substance: No Vital Signs: 09/30/25 05:48 09/30/25 05:54 Temperature 98.1 F 98.1 F Temperature Source Oral Pulse Rate 79 Pulse Rate [Left] 79 Respiratory Rate 79 H 16 Blood Pressure 143/94 H Blood Pressure [Right Arm] 143/94 H Blood Pressure Mean [Right Arm] 110 02 Sat by Pulse Oximetry 98 98 Oxygen Delivery Method Room Air Room Air Orders (Tests/Meds): ED MEDICATIONS Generic Name Dose Route Start Last Admin Trade Name Freq PRN Reason Stop Dose Admin Methocarbamol 1,000 mg 09/30/25 09:00 Methocarbamol 500mg Tablet PO 10/30/25 08:59 BID DEDE Discontinued Medications Generic Name Dose Route Start Last Admin Trade Name Freq PRN Reason Stop Dose Admin Acetaminophen 1,000 mg 09/30/25 05:51 Acetaminophen 500mg Tab PO 09/30/25 05:52 ONCE ONE Lidocaine 1 each 09/30/25 05:51 Lidocaine 5% Transdermal Patch TD 09/30/25 05:52 ONCE ONE ORDERS Category Date Time Status HIV Combo Stat Lab 09/30/25 05:52 Ordered Hepatitis C Ab Qual. W/ RFX Stat Lab 09/30/25 05:52 Ordered Medical Decision Narrative: In summary, this 59-year-old male with comorbidities described in HPI presents to the emergency department today with pain radiating from the right lower back region to the right hip and behind the right leg. On initial evaluation patient is hemodynamically stable, afebrile, GCS 15, no neurologic deficits, full strength, physical exam is notable for tenderness of the sciatic notch, over the piriformis muscle, but no paraspinal tenderness, no vertebral tenderness, no evidence of acute traumatic injury, no saddle anesthesia, no CVA tenderness, no other abnormalities appreciated on exam. Differential diagnosis includes but is not limited to muscle spasm, radiculopathy, sciatica, piriformis syndrome, I considered cauda equina but have no evidence of this clinically, patient has no red flag symptoms including no sudden onset back pain, no midline tenderness, no saddle anesthesia, no bowel or bladder incontinence, no weakness. I do not believe patient requires any labs or imaging since he has stable vitals and reassuring exam without red flag symptoms. We discussed at length sciatica, radiculopathy, piriformis syndrome, and options for management. I am going to proceed with conservative management with multimodal pain control in the ER including acetaminophen, lidocaine patch, methocarbamol. I have prescribed lidocaine patches, methocarbamol. Patient already has follow-up with physical therapy which I instructed him to keep. We had a shared decision-making discussion about steroids. I discussed that there is no evidence to show statistical benefit but that some patients have experienced relief with steroid use but that they are likely to cause his blood sugars to be more uncontrolled since he is a type II diabetic. Patient does not want to start steroids in the ER but would like to have a prescription available to him to try if needed. I discussed the steroid taper. He has established follow-up as discussed with physical therapy and orthopedics which I instructed him to keep. He was given instructions on continued symptomatic monitoring and management, medication use of his previous prescriptions and new prescriptions, follow-up instructions, and strict return precautions for the ER including but not limited to red flag symptoms. He indicated understanding and the patient was discharged in stable condition. Critical Care Critical Care Time Critical Care Time: No
[2025-09-30] MEDS: LIDOCAINE 5% TRANSDERMAL PATCH 1 EACH TD (06:14)
[2025-09-30] MEDS: METHOCARBAMOL 500MG TABLET 1000 MG PO (06:14)
[2025-09-30 06:17] VITALS: BP 143/94; PULSE 79; RESP 16; TEMP 36.8; O2SAT 98
== END 2025-09-30 06:24 | disposition home or self-care (01) ==
PROVIDERS: Emergency Provider Emergency Medicine; PCP Nurse Practitioner Family
DX: M79.604 Pain in right leg (principal); E11.9 Type 2 diabetes mellitus without complications; Z79.84 Long term (current) use of oral hypoglycemic drugs
CPT/HCPCS: 99283; 99284